=== PATIENT | male | born 1955 | race Two or more races ===

== ENCOUNTER 2018-05-18 12:49 | Emergency (ER) | payer OTHER ==
[~2018-05-18] VITALS: Wt 110.0 kg
[2018-05-18 12:54] VITALS: BP 170/82; PULSE 78; RESP 18
--- NOTE | 2018-05-18 14:28 | ERD ---
ER Documentation Chief Complaint Chief Complaint COUGH WITH SSWALLOWING PROBLEMS X 4 MONTH HPI 63-year-old male, presents the emergency department, referred from urgent care to request a CT of the neck for evaluation of sore throat, associated with dysphagia for solids for 4 months. The patient has received courses of antibiotics without improvement of the symptoms. He denies fevers, no chills. The pain is constant, radiates to bilateral ears. ROS All systems reviewed and are negative except as per history of present illness. Medications Home Meds Active Scripts Prednisone* (Prednisone*) 20 Mg Tab, 40 MG PO DAILY for 5 Days, TAB Prov:ANH SZYMANSKI MD 05/18/18 Ranitidine Hcl* (Zantac*) 150 Mg Tablet, 150 MG PO BID PRN for EPIGASTRIC PAIN, #30 TAB Prov:ANH SZYMANSKI MD 05/18/18 Clarithromycin* (Clarithromycin*) 500 Mg Tablet, 500 MG PO BID for 10 Days, #20 TAB Prov:ANH SZYMANSKI MD 05/18/18 PMhx/Soc History of Surgery: No Anesthesia Reaction: No Hx Neurological Disorder: No Hx Respiratory Disorders: No Hx Cardiac Disorders: No Hx Psychiatric Problems: No Hx Miscellaneous Medical Probl: Yes (ELEVATED CHOLESTEROL, KIDNEY STONE) Hx Alcohol Use: No Hx Substance Use: No Hx Tobacco Use: No Smoking Status: Never smoker Physical Exam Vitals Vital Signs Date Temp Pulse Resp B/P (MAP) Pulse Ox O2 O2 Flow FiO2 Time Delivery Rate 05/18/18 98.1 78 18 170/82 9 12:54 (111) Physical Exam Const: No acute distress Head: Atraumatic Eyes: Normal Conjunctiva ENT: Erythematous oropharynx, tonsils enlarged, with bilateral exudates. Neck: Full range of motion. No meningismus. Bilateral lymphadenopathy, no masses. Resp: Clear to auscultation bilaterally Cardio: Regular rate and rhythm, no murmurs Abd: Soft, non tender, non distended. Normal bowel sounds Skin: No petechiae or rashes Back: No midline or flank tenderness Ext: No cyanosis, or edema Neur: Awake and alert Psych: Normal Mood and Affect Results 24 hrs DIAGNOSTIC IMAGING REPORT Patient: DANIEL CARTER : 1955 Age: 63 Sex: M MR #: [id number] DOS: 05/18/18 1425 Ordering MD: ANH SZYMANSKI MD Location: [facility] Room/Bed: PROCEDURE: CT soft tissue neck without contrast. CLINICAL INDICATION: Dysphagia, and throat pain. TECHNIQUE: The study was performed utilizing a multi-slice multidetector CT scanner. Direct thin section helically acquired axial sections were obtained through the neck without contrast. Coronal and sagittal reformations were obtained. The images were reviewed on a PACS workstation. The total CTDIvol is 10.64 mGy and the DLP is 255.43 mGy-cm. DICOM images are available. One or more of the following dose reduction techniques were utilized: 1.) Automated exposure control 2.) Adjustment of the mA +/- kV according to patient's size 3.) Use of iterative reconstruction technique. COMPARISON: No prior studies are available for comparison. FINDINGS: The nasopharynx, oropharynx, hypopharynx, and larynx are all normal in appearance. The thyroid gland is normal in size with no focal mass lesions seen. The submandibular and parotid glands are unremarkable and normal in appearance. No pathologically enlarged lymph nodes are detected. No osteolytic or blastic lesion is evident. Polypoid mucosal thickening is seen in bilateral maxillary sinuses. Multilevel cervical spondylosis/spondyloarthropathy changes are present more evident at C5-C6. IMPRESSION: 1. No mass or lymphadenopathy in the soft tissues of the neck. RPTAT: HHO .Jenni Rhoades MD, MD Date Time Electronically viewed and signed by .Jenni Rhoades MD, MD on 05/18/2018 15:22 .O/ CC: ANH SZYMANSKI MD [id number] Procedures/MDM Differential diagnosis include but not limited to: Tonsillar/pharyngeal infection bacterial/viral/fungal, parotitis, allergies, GERD. Less likely peritonsillar abscess, retropharyngeal abscess. No signs of upper respiratory obstruction Physical examination and clinical presentation consistent most likely with chronic tonsillitis. During the ED course the patient remained stable, no new complaints. Clinical impression discussed with the patient who agrees with management. The patient is stable to be treated outpatient and will be discharged home with a Rx for antibiotic and ibuprofen. Some side effects of prescribed medications (headache, rash, nausea, vomiting, d iarrhea, drowsiness, habituation, bleeding, hypertension, interactions with other medications) were reviewed. The patient was instructed to follow up with the primary care provider in the next 48h. If symptoms persist, worsen or new symptoms develop, then patient should return to the ED immediately. Disclaimer: Inadvertent spelling and grammatical errors are likely due to EHR/di ctation software use and do not reflect on the overall quality of patient care. Also, please note that the electronic time recorded on this note does not necessarily reflect the actual time of the patient encounter. Departure Diagnosis: Primary Impression: Chronic tonsillitis Condition: Stable Additional Instructions: Thank you very much for allowing us to participate in your care. Your health and safety is our top priority at [facility]. Call your primary care doctor TOMORROW for an appointment during the next 2-4 days and bring all the information and medications prescribed. Have prescriptions filled and follow precisely the directions on the label. If the symptoms get worse and your provider is unavailable, return to the Emergency Department immediately. ANH SZYMANSKI MD May 18, 2018 14:28
[2018-05-18] MEDS ORDERED: PRED20TA PO (16:33)
[2018-05-18] MEDS ORDERED: RANI150T35 PO (16:33)
[2018-05-18] MEDS ORDERED: CLAR500T PO (16:33)
== END 2018-05-18 16:46 | disposition home or self-care (01) ==
LOC: FTE 12:49
DX: J35.01 Chronic tonsillitis (principal)
CPT/HCPCS: 70490